=== PATIENT | female | born 1955 | race Caucasian/White ===

== ENCOUNTER 2017-10-01 19:02 | Emergency (ER) | payer SELFPAY ==
[2017-10-01] MEDS: ONDANSETRON ODT 4 MG TAB.RAPDIS. PO (20:10)
[2017-10-01] MEDS: oxyCODONE/APAP 7.5/325 1 TAB TABLET PO (20:11)
[2017-10-01] MEDS: diazePAM 5 MG TABLET PO (20:11)
[2017-10-01] MEDS ORDERED: KETOROLAC 60 MG/2 ML INJ. IM (20:45)
== END 2017-10-01 20:39 | disposition home or self-care (01) ==
LOC: ER 19:02
DX: M54.12 Radiculopathy, cervical region (principal); Z88.8 Allergy status to other drugs, medicaments and biological substances; Z88.5 Allergy status to narcotic agent
CPT/HCPCS: 99284; Q0162